=== PATIENT | female | born 1975 | race Two or more races ===

== ENCOUNTER 2021-05-07 05:52 | Day surgery (SDC) | payer OTHER | END 2021-05-07 10:10 | disposition home or self-care (01) | LOC: AMB-ENDOS 05:52 | PROVIDERS: ATTEND Surgery | DX: K29.70 Gastritis, unspecified, without bleeding (principal); K44.9 Diaphragmatic hernia without obstruction or gangrene ==

== ENCOUNTER → 2022-08-27 | Day surgery (SDC) | payer OTHER ==
[~2022-08-27] VITALS: Ht 188 cm; Wt 116.1 kg
== END | disposition home or self-care (01) ==
LOC: ADM 08-24 08:45 → CIR.AMB 08:45
PROVIDERS: ATTEND Obstetrics & Gynecology
DX: N84.0 Polyp of corpus uteri (principal); N72 Inflammatory disease of cervix uteri; N93.8 Other specified abnormal uterine and vaginal bleeding; Z80.0 Family history of malignant neoplasm of digestive organs; Z20.822 Contact with and (suspected) exposure to COVID-19